=== PATIENT | female | born 1985 | race American Indian/Alaskan Native ===

== ENCOUNTER 2018-10-20 00:21 | Emergency (ER) | payer OTHER ==
[2018-10-20 00:44] VITALS: TEMP 98.6
[2018-10-20 01:06] LABS: SQUAMOUS EPITHIAL 1 /hpf (0-5); URINE BILIRUBIN NEGATIVE (NEGATIVE); URINE BLOOD 3+ (NEGATIVE); URINE CLARITY Hazy (Clear); URINE COLOR Yellow (YELLOW); URINE GLUCOSE (UA) NORMAL (Normal); URINE LEUKOCYTE ESTERASE NEG Leu/uL (Negative); URINE PROTEIN 1+ mg/dL (NEGATIVE); URINE UROBILINOGEN NORMAL mg/dL (0.2-1.0)
[2018-10-20 01:07] LABS: HCG,QUALITATIVE URINE NEGATIVE (NEGATIVE)
[2018-10-20 01:42] LABS: BASO % 0.2 % (0.0-2.0); EOS # 0.1 K/uL (0.0-0.7); EOS % 1.7 % (0.0-4.0); HEMOGLOBIN 9.7 g/dL (11.0-16.0); LYMPH # 1.5 K/uL (1.0-4.3); LYMPH % 29.9 % (20.0-40.0); MEAN CELL VOLUME 66.1 fL (81.0-99.0); MEAN CORPUSCULAR HEMOGLOBIN 20.7 pg (27.0-31.0); MEAN CORPUSCULAR HGB CONC 31.4 g/dL (33.0-37.0); MEAN PLATELET VOLUME 10.4 fL (7.2-11.7); MONO # 0.4 K/uL (0.0-0.8); MONO % 7.7 % (0.0-10.0); NEUT # 3.1 K/uL (1.8-7.0); NEUT % 60.5 % (50.0-75.0); PLATELET COUNT 262 K/uL (130-400); RED CELL DISTRIBUTION WIDTH 18.3 % (11.5-14.5); WHITE BLOOD COUNT 5.2 K/uL (4.8-10.8)
--- NOTE | 2018-10-20 02:05 | C.PDOC ---
History Of Present Illness 33 year old female states she has had her menstrual period for 2 weeks and complaining of lower abdominal cramping. Patient reports Hx of anemia. Denies change in urination. 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 Time Seen by Provider: 10/20/18 00:51 Chief Complaint (Nursing): Female Genitourinary History Per: Patient History/Exam Limitations: no limitations Onset/Duration Of Symptoms: Days Quality Of Discomfort: Cramping Alleviating Factors: None Recent travel outside of the [place]: No Past Medical History Reviewed: Historical Data, Nursing Documentation, Vital Signs Vital Signs: Last Vital Signs Temp 98.6 F 10/20/18 00:33 Pulse 90 10/20/18 00:33 Resp 20 10/20/18 00:33 BP 120/74 10/20/18 00:33 Pulse Ox 100 10/20/18 00:33 - Medical History PMH: Anemia Family History: States: Unknown Family Hx - Social History Hx Alcohol Use: No Hx Substance Use: No - Immunization History Hx Tetanus Toxoid Vaccination: No Hx Influenza Vaccination: No Hx Pneumococcal Vaccination: No Review Of Systems Constitutional: Negative for: Fever, Chills Cardiovascular: Negative for: Chest Pain, Palpitations Respiratory: Negative for: Cough, Shortness of Breath Gastrointestinal: Positive for: Abdominal Pain Genitourinary: Positive for: Vaginal Bleeding. Negative for: Dysuria, Hematuria Musculoskeletal: Negative for: Back Pain Skin: Negative for: Rash Physical Exam - Physical Exam Appears: Well, Non-toxic, No Acute Distress Skin: Normal Color, Warm, No Rash Head: Atraumatic, Normacephalic Eye(s): bilateral: Normal Inspection Oral Mucosa: Moist Cardiovascular: Rhythm Regular Respiratory: Normal Breath Sounds, No Accessory Muscle Use, Other (Normal inspiratory effort) Gastrointestinal/Abdominal: Soft, No Tenderness Back: No CVA Tenderness Pelvic: Other (Dark red blood in the vault, no pooling, no active bleeding, no adnexal tenderness, no CMT. Clinical Laboratory Aide ALEJANDRA García.) Neurological/Psych: Oriented x3, Normal Speech ED Course And Treatment - Laboratory Results Result Diagrams: 10/20/18 01:37 Lab Results: Urine Color Yellow (YELLOW) 10/20/18 00:45 Urine Clarity Hazy (Clear) 10/20/18 00:45 Urine pH 5.0 (5.0-8.0) 10/20/18 00:45 Ur Specific [place] 1.023 (1.003-1.030) 10/20/18 00:45 Urine Protein 1+ mg/dL (NEGATIVE) H 10/20/18 00:45 Urine Glucose (UA) Normal mg/dL (Normal) 10/20/18 00:45 Urine Ketones Negative mg/dL (NEGATIVE) 10/20/18 00:45 Urine Blood 3+ (NEGATIVE) H 10/20/18 00:45 Urine Nitrate Negative (NEGATIVE) 10/20/18 00:45 Urine Bilirubin Negative (NEGATIVE) 10/20/18 00:45 Urine Urobilinogen Normal mg/dL (0.2-1.0) 10/20/18 00:45 Ur Leukocyte Esterase Neg Flavio/uL (Negative) 10/20/18 00:45 Urine WBC (Auto) 7 /hpf (0-5) H 10/20/18 00:45 Urine RBC (Auto) 273 /hpf (0-3) H 10/20/18 00:45 Ur Squamous Epith Cells 1 /hpf (0-5) 10/20/18 00:45 Urine HCG, Qual Negative (NEGATIVE) 10/20/18 00:45 Urine HCG, Qual Negative (NEGATIVE) 10/20/18 00:45 O2 Sat by Pulse Oximetry: 100 (Room air) Pulse Ox Interpretation: Normal Medical Decision Making Medical Decision Making: patient reports that her blood count is chronically low. she has been advised to follow up with her pcp for repeat cbc in 1 week. Disposition Counseled Patient/Family Regarding: Diagnosis, Need For Followup - Disposition Referrals: [facility] at [facility] [Outside] Valencia Dickinson MD [Staff Provider] - Disposition: HOME/ ROUTINE Disposition Time: 02:04 Condition: STABLE Additional Instructions: Follow up with personal lines appraiser for abnormal bleeding. If bleeding worsens, return to the ER. Present to your primary care physician for a repeat check of your blood level within a week. Instructions: Absent or Irregular Periods Forms: [facility] (Latvian), General Discharge Instructions - Clinical Impression Clinical Impression: Irregular menstrual bleeding - PA / FARM HAND / Resident Statement MD/DO has reviewed & agrees with the documentation as recorded. - Scribe Statement The provider has reviewed the documentation as recorded by the Scribjanneth Plunkett All medical record entries made by the Scribe were at my direction and personally dictated by me. I have reviewed the chart and agree that the record accurately reflects my personal performance of the history, physical exam, medical decision making, and the department course for this patient. I have also personally directed, reviewed, and agree with the discharge instructions and disposition.
[2018-10-20 02:11] LABS: EOSINOPHIL 1 % (0-4); LYMPHOCYTE 30 % (20-40); MONOCYTE 7 % (0-10); NEUTROPHIL 62 % (50-75); PLATELET ESTIMATE NORMAL (NORMAL); TOTAL CELLS COUNTED 100
[2018-10-20 02:12] LABS: ANISOCYTOSIS MODERATE; HYPOCHROMIC MODERATE; MICROCYTOSIS MODERATE; OVALOCYTES SLIGHT; POLYCHROMIC SLIGHT
[2018-10-20 02:13] LABS: SCHISTOCYTES SLIGHT; TEARDROP CELLS SLIGHT
[2018-10-20 02:18] VITALS: BP 118/80; PULSE 80; RESP 14
[2018-10-20 03:12] VITALS: O2SAT 100
== END 2018-10-20 02:17 | disposition home or self-care (01) ==
LOC: C.ER 00:21
DX: N92.6 Irregular menstruation, unspecified (principal)

== ENCOUNTER 2018-10-26 11:15 | Outpatient (CLI) | payer OTHER | END 2018-10-26 11:16 | disposition home or self-care (01) | LOC: C.USIC 11:15 ==